=== PATIENT | male | born 1980 | race Caucasian/White ===

== ENCOUNTER 2019-08-22 05:10 | Emergency (ER) | payer SELFPAY ==
[~2019-08-22] VITALS: Ht 185.4 cm; Wt 139.0 kg
[2019-08-22 05:15] VITALS: BP 137/100
--- NOTE | 2019-08-22 05:56 | NUR ---
INITIAL CONTACT WITH PT. PT HAS BEEN SEEN BY MD AND ABSCESS HAS BEEN LANCED.
--- NOTE | 2019-08-22 06:26 | NUR ---
PT DC'D HOME WITH RX X 2 AND UNDERSTANDING OF INSTRUCTIONS. PT TO DC DESK, GAIT STEADY.
== END 2019-08-22 06:29 | disposition home or self-care (01) ==
LOC: ED 06:00
DX: K04.7 Periapical abscess without sinus (principal); K02.9 Dental caries, unspecified
CPT/HCPCS: 41800; 99283